=== PATIENT | female | born 1995 | race Caucasian/White ===

== ENCOUNTER 2022-02-28 05:32 | Emergency (ER) | payer BC ==
[2022-02-28 06:01] VITALS: BP 104/68; PULSE 66; RESP 18; TEMP 98.8
[2022-02-28] MEDS ORDERED: NALOXONE HCL (KLOXXADO) 8 MG SPRAY NS ONE (06:06)
[2022-02-28 06:10] VITALS: BMI 19.5
[2022-02-28] MEDS ORDERED: NALOXONE HCL 0.4 MG/ML VIAL IM ONE (06:10)
[2022-02-28] MEDS ORDERED: NALOXONE HCL 0.4 MG/ML VIAL ONE (06:11)
== END 2022-02-28 06:52 | disposition home or self-care (01) ==
LOC: JER 05:32
DX: T40.411A Poisoning by fentanyl or fentanyl analogs, accidental (unintentional), initial encounter (principal)
CPT/HCPCS: 99283-25